=== PATIENT | female | born 1970 | race Caucasian/White ===

== ENCOUNTER 2016-12-08 17:29 | Inpatient (IN) ==
[2016-12-08] MEDS ORDERED: Vancomycin 1,000 MG in D5% in Water 250 ML IVPB ONE (18:04)
--- NOTE | 2016-12-08 18:07 | Emergency Department Note ---
Disposition Clinical Impression: Olecranon bursitis Qualifiers: Laterality: left Qualified Code(s): M70.22 - Olecranon bursitis, left elbow Cellulitis Qualifiers: Site of cellulitis: unspecified site Qualified Code(s): L03.90 - Cellulitis, unspecified Disposition: Admitted As Inpatient Condition: Good Referrals: NONE,PCP [Primary Care Provider] - Forms: ED Satisfaction Letter Extremity Problem HPI - General Chief complaint: ED Extremity Problem,Nontraumatic Stated complaint: Cellulitis left arm Time Seen by Provider: 12/08/16 17:40 Source: patient Limitations: no limitations Nursing Notes Reviewed: Yes Vital Signs Reviewed: Yes - History of Present Illness HPI Narrative: Patient here for evaluation of left arm erythema and swelling. She has a history of IV drug use but nothing recent. She states the symptoms of left elbow pain has been going on for approximately 2 months. Erythema started about 3 weeks ago. She has tried warm soaks as well as trying to pop which she is concerned about an abscess in her elbow. Patient has now had swelling and erythema in the surrounding area. She has had fever for 1 day as well as chills. Pain Scale: 8 - Related Data Allergies Allergy/AdvReac Type Severity Reaction Status Date / Time ibuprofen Allergy Anaphylaxis Verified 12/08/16 17:36 Review of Systems: CONSTITUTIONAL: Fever and chills; No weight loss, , weakness or fatigue. HEENT: Eyes: No visual changes. Ears, Nose, Throat: No hearing loss, difficulty talking or unable to swallow. SKIN: Erythema of elbow CARDIOVASCULAR: No chest pain, chest pressure or chest discomfort. No palpitations or edema. RESPIRATORY: No shortness of breath, cough or sputum. GASTROINTESTINAL: No anorexia, nausea, vomiting or diarrhea. No abdominal pain or blood. GENITOURINARY: No burning on urination or hematuria. NEUROLOGICAL: No headache, dizziness, syncope, paralysis, ataxia, numbness or tingling in the extremities. No change in bowel or bladder control. MUSCULOSKELETAL: No muscle pain, back pain, joint pain or stiffness. Past Medical History - Past Medical History Medical history: Reports: hepatitis Psychiatric history: Reports: anxiety, ADHD, bipolar, depression - Social History Smoking Status: Current every day smoker Alcohol use: Reports: none Drug use: Reports: marijuana Physical Exam General appearance: NAD, conversant Eyes: anicteric sclerae, moist conjunctivae; PERRL HENT: Atraumatic; oropharynx clear with moist mucous membranes and no mucosal ulcerations Neck: Normal inspection; Trachea midline; FROM, supple Lungs: CTA, with normal respiratory effort and no intercostal retractions CV: RRR, no MRGs Abdomen: Soft, non-tender; no rebound or gaurding Extremities: Erythema and swelling to the left elbow. Area marked with nipple marker. Approximately 5 x 7 cm in nature. Skin: Normal temperature; no rash, ulcers or lesions Psych: Appropriate mood and affect Neuro: alert and oriented to person, place and time - General Limitations: no limitations General appearance: alert, in no apparent distress Course - Reevaluation(s) Reevaluation #1: Elevated white count, olecranon bursitis, cellulitis. - Consultations Consultation #1: Discussed with Dr. Fried. Pt accepted. Vital Signs Temperature 99.0 F 12/08/16 17:31 Pulse Rate 87 12/08/16 17:31 Respiratory Rate 16 12/08/16 17:31 Blood Pressure 138/56 12/08/16 17:31 O2 Sat by Pulse Oximetry 96 12/08/16 17:31 Temperature 99.0 F 12/08/16 17:31 Pulse Rate 87 12/08/16 17:31 Respiratory Rate 16 12/08/16 17:31 Blood Pressure 138/56 12/08/16 17:31 O2 Sat by Pulse Oximetry 96 12/08/16 17:31 Oxygen Delivery Oxygen Delivery Room Air Extremity Problem, Nontraumati - Medical Records Medical records reviewed: Yes I reviewed the patient's medical records. - Lab Data Lab results reviewed: Yes I reviewed the patient's lab results. Result diagrams: 12/08/16 18:31 12/08/16 18:31 Lab Results 12/08/16 12/08/16 Range/Units 18:31 18:31 WBC 14.2 H (4.3-11.1) K/mcL RBC 4.42 (3.82-4.97) M/mcL Hgb 13.3 (11.5-15.4) g/dL Hct 40.9 (35.3-44.9) % MCV 92.5 (83.0-100.0) fL MCH 30.1 (28.0-33.3) pg MCHC 32.5 (31.6-35.5) g/dL RDW 13.9 (11.5-14.5) % Plt Count 165 (140-400) K/mcL MPV 11.8 (9.4-12.4) fL Immature Gran % 0.4 (0-4) % Seg Neutrophils % 84.9 % Lymphocytes % 8.2 % Monocytes % 6.2 % Eosinophils % 0.1 % Basophils % 0.2 % Neutrophils # 12.1 H (1.6-8.9) K/mcL Lymphocytes # 1.2 (0.6-4.6) K/mcL Monocytes # 0.9 (0.0-1.3) K/mcL Eosinophils # 0.0 (0.0-0.6) K/mcL Basophils # 0.0 (0.0-0.2) K/mcL Sodium 132 L (136-145) mEq/L Potassium 3.8 (3.5-4.5) mEq/L Chloride 100 (98-109) mEq/L Carbon Dioxide 19 (19-29) mEq/L BUN 13 (7-20) mg/dL Creatinine 0.70 (0.57-1.11) mg/dL Est GFR ( Amer) > 60 (> 60) Est GFR (Non-Af Amer) > 60 (> 60) BUN/Creatinine Ratio 19 (6-26) Glucose 102 H (70-99) mg/dL Calculated Osmolality 274 L (280-300) Calcium 9.9 (8.6-10.8) mg/dL Total Bilirubin 0.3 (0.2-1.2) mg/dL Direct Bilirubin 0.2 (0.0-0.5) mg/dL Indirect Bilirubin 0.1 (0.0-1.2) mg/dL AST 22 (5-34) Units/L ALT 22 (0-55) Units/L Alkaline Phosphatase 125 (38-126) Units/L Serum Total Protein 7.6 (6.0-8.3) g/dL Albumin 3.2 L (3.5-5.0) g/dL Globulin 4.4 H (2.4-3.5) g/dL Albumin/Globulin Ratio 0.7 L (1.1-2.2) - Radiology Data Radiology results reviewed: Yes I reviewed the patient's radiology results. - EKG Data EKG attestation: Yes I reviewed and interpreted this EKG. EKG results narrative: EKG shows sinus tachycardia with ventricular rate of 118. VT interval 128. QRS 85. QTC 410. No significant ST elevations or depressions. No previous EKG at this time for comparison.
--- NOTE | 2016-12-08 18:18 | Emergency Department Note ---
START Narrative - START START: I examined this patient and my medical decision-making was reviewed with the Resident Physician. I agree with the documented findings, disposition and treatment plan as described except to the extent set forth below. Patient was independently seen and evaluated by myself. Patient was seen with the emergency medicine resident Kurt Elizabeth. Please see copy of her notes for details of this ED encounter management and disposition. Briefly: A 46-year-old female former IVDA presents with about a week of increasing redness and discomfort around her left elbow. Denies any recent IV drug use for years denies stabbing or needling the area she has almost circumferential cellulitis involving the olecranon bursa. She is neurovascularly intact. There is some soft tissue fullness unclear if this fluctuance. Patient had blood work and the CT with contrast to check for delineation of the depth and the tissue planes of the infection. Admission anticipated with IV antibiotics. Provided 30 minutes of critical care service for this patient. Disposition pending
[2016-12-08 18:50] LABS: Basophils % 0.2 %; Eosinophils % 0.1 %; Hematocrit 40.9 % (35.3-44.9); Hemoglobin 13.3 g/dL (11.5-15.4); Immature Granulocytes % 0.4 % (0-4); Lymphocytes # 1.2 K/mcL (0.6-4.6); Lymphocytes % 8.2 %; Mean Corpuscular HGB Conc 32.5 g/dL (31.6-35.5); Mean Corpuscular Hemoglobin 30.1 pg (28.0-33.3); Mean Corpuscular Volume 92.5 fL (83.0-100.0); Mean Platelet Volume 11.8 fL (9.4-12.4); Monocytes # 0.9 K/mcL (0.0-1.3); Monocytes % 6.2 %; Neutrophils # 12.1 K/mcL (1.6-8.9); Platelet Count 165 K/mcL (140-400); Red Blood Count 4.42 M/mcL (3.82-4.97); Red Cell Distribution Width 13.9 % (11.5-14.5); Segmented Neutrophils % 84.9 %
[2016-12-08 19:03] LABS: Alanine Aminotransferase 22 Units/L (0-55); Albumin 3.2 g/dL (3.5-5.0); Albumin/Globulin Ratio 0.7 (1.1-2.2); Alkaline Phosphatase 125 Units/L (38-126); Aspartate Amino Transferase 22 Units/L (5-34); BUN/Creatinine Ratio 19 (6-26); Bilirubin,Direct 0.2 mg/dL (0.0-0.5); Bilirubin,Indirect 0.1 mg/dL (0.0-1.2); Bilirubin,Total 0.3 mg/dL (0.2-1.2); Blood Urea Nitrogen 13 mg/dL (7-20); Calcium 9.9 mg/dL (8.6-10.8); Carbon Dioxide 19 mEq/L (19-29); Chloride 100 mEq/L (98-109); Globulin 4.4 g/dL (2.4-3.5); Glucose 102 mg/dL (70-99); Osmolality,Calculated 274 (280-300); Potassium 3.8 mEq/L (3.5-4.5); Sodium 132 mEq/L (136-145); Total Protein 7.6 g/dL (6.0-8.3); eGFR For African Americans > 60 (> 60); eGFR For Non-African Americans > 60 (> 60)
[2016-12-08 23:04] LABS: Bilirubin,Urine Negative (Negative); Blood,Urine Negative (Negative); Clarity,Urine Clear (Clear); Color,Urine Yellow (Yellow); Glucose,Urine (UA) Normal (Normal); Ketones,Urine Negative (Negative); Leukocyte Esterase,Urine Negative (Negative); Nitrite,Urine Negative (Negative); PH,Urine 6.5 pH Units (5.0-8.0); Protein,Urine Negative (Neg-Trace); Specific Gravity,Urine > 1.030 (1.010-1.025); Urobilinogen,Urine Normal (Normal)
[2016-12-08 23:10] LABS: Amphetamine Screen,Urine Positive ng/mL (Cutoff=1000); Barbiturate Screen,Urine Negative ng/mL (Cutoff=200); Benzodiazepines Screen,Urine Negative ng/mL (Cutoff=200); Cannabinoid Screen,Urine Positive ng/mL (Cutoff = 50); Cocaine Screen,Urine Negative ng/mL (Cutoff= 300); Opiate Screen,Urine Positive ng/mL (Cutoff=300); Phencyclidine Screen,Urine Negative ng/mL (Cutoff=25)
--- NOTE | 2016-12-09 00:48 | Internal Med History&Physical ---
Date of Encounter: 12/09/16 Time of Encounter: 00:45 Assessment and Plan (1) IV drug user Current visit: Yes Status: Acute I will avoid IV opiates for pain control due to high potential for addiction, abuse and dependence. (2) Polysubstance abuse Current visit: Yes Status: Acute Urine drug screen is positive for marijuana, opiates and methamphetamine. Plan: We will consult social work. I have instructed the patient does not share needles. (3) Tobacco abuse Current visit: Yes Status: Acute I have advised smoking cessation and offered nicotine replacement therapy. (4) Olecranon bursitis Current visit: Yes Status: Acute Broad spectrum IV antibiotics and consult to orthopedic surgery. Pain control with IV acetaminophen. In spite of reported history of hepatitis B, her LFTs are normal so a dose of up to 4 g of IV acetaminophen for a short course should be safe. Qualifiers: Laterality: left Qualified Code(s): M70.22 - Olecranon bursitis, left elbow (5) Left arm cellulitis Current visit: Yes Status: Acute IV Zosyn and vancomycin. Follow-up blood cultures obtained in the emergency department. Source controlled by orthopedics. Intraoperative culture and if the patient requires I&D. Nothing by mouth after midnight. Pain control with IV acetaminophen. (6) Sepsis due to cellulitis Current visit: Yes Status: Acute Diagnosis established based on elevated white blood cell count of 14,000 and tachycardia with heart rate of 100. Plan: Blood cultures are pending. Start broad-spectrum IV antibiotics with Zosyn and vancomycin. Check lactic acid level. No evidence of end organ dysfunction at this time. We will monitor closely. She is at high risk for morbidity, mortality and complications due to sepsis requiring IV vancomycin which needs blood level monitoring for toxicity. Internal Medicine - H&P: HPI Chief complaint: Left arm swelling and pain Admitted From: Emergency Dept Plans for Post Hospital Care: Home History of present illness: Ms. Summers is a 46 year old female with past medical history for significant for IV drug use and hepatitis B who presented to the hospital for evaluation of left arm pain. She noticed a small lesion on her elbow month and a half ago she tried to squeeze the contents which appeared to be fluid and thought it was improving. Soon it started swelling and over the last 3 days swelling involved the left elbow forearm and extending into the left arm, was associated with severe dull and aching 8/10 in intensity pain in the left elbow, worse with movement. She tried hot water and did not improve her pain. She reports associated subjective fevers. A 10 point review of systems was negative Family history was reviewed and found to be noncontributory to the current presentation Social history: She lives at home with her boyfriend, she has a history of IV drug use mostly heroin which last use was started 3 months ago, she admits to snorting heroin 3 weeks ago, denies alcohol use, smokes 10 cigarettes a day Past Med Surg Social Fam HX - Past Medical History Medical history: hepatitis, other Psychiatric history: anxiety, ADHD, bipolar, depression - Social History Smoking Status: Current every day smoker Packs per day: 0.5 Smokeless Tobacco Status: No Alcohol use: none Drug use: cocaine, marijuana, other - Family History Sister History Unknown: Yes Internal Medicine - H&P: Meds 3 Allergy/AdvReac Type Severity Reaction Status Date / Time ibuprofen Allergy Anaphylaxis Verified 12/08/16 17:36 All Systems PM: A 10-system review of systems was performed and is negative for pertinent findings except as documented above in the HPI. - Constitutional Vitals: Temp Pulse Resp BP Pulse Ox 98.4 F 100 15 106/65 97 12/08/16 22:42 12/08/16 22:42 12/08/16 22:42 12/08/16 22:42 12/08/16 22:42 General appearance: Present: A&O X 3 - Eye Eye exam: Present: PERRL, conjuntiva pink, sclera anicteric Pupils: Present: PERRL - Respiratory Respiratory exam: Present: CTAB. Absent: accessory muscle use, rales, rhonchi, wheezes - Cardiovascular Cardiovascular exam: Present: RRR, +S1, +S2. Absent: diastolic murmur, gallop, rubs, systolic murmur - GI/Abdominal GI/Abdominal exam: Present: normal bowel sounds, soft, no peritoneal signs. Absent: distended, tenderness - Extremities Exam Extremities exam: Present: warm, radial pulses palpable and symmetrical. Absent : calf tenderness, cyanotic, pedal edema Additional comments: Left upper extremity swelling and pain and tenderness to palpation and passive mobilization. - Neurological Exam Neurological exam: Present: CN II-XII intact, oriented X3, no focal deficits. Absent: pronater drift, facial droop, speech deficit - Skin Additional comments: Left elbow, forearm and proximal left arm soft tissue swelling, redness and tenderness to palpation, no fluctuant area is noted. No open wounds, no track weir. There are some small scabbed wounds on the dorsum of the left hand which could have been previous self injection sites. No other obvious skin lesions noted. Internal Med - H&P Results - Labs CBC & Chem 7: 12/08/16 18:31 12/08/16 18:31 Labs: Urine 12/08/16 Range/Units 22:53 Urine Color Yellow (Yellow) Urine Clarity Clear (Clear) Urine pH 6.5 (5.0-8.0) pH Units Ur Specific [place] > 1.030 H (1.010-1.025) Urine Protein Negative (Neg-Trace) mg/dL Urine Glucose (UA) Normal (Normal) mg/dL
[2016-12-09] MEDS ORDERED: Acetaminophen 325 MG TABLET PO PRN (01:20)
[2016-12-09] MEDS ORDERED: Ondansetron 4 MG/2 ML VIAL IVP PRN (01:20)
[2016-12-09] MEDS ORDERED: Acetaminophen IV 1,000 MG/100 ML INFUS..BTL IVPB ONE (01:22)
[2016-12-09 01:35] LABS: Hematocrit 39.2 % (35.3-44.9); Hemoglobin 13.1 g/dL (11.5-15.4); Immature Platelets 6.4 % (1.1-6.1); Mean Corpuscular HGB Conc 33.4 g/dL (31.6-35.5); Mean Corpuscular Hemoglobin 30.3 pg (28.0-33.3); Mean Corpuscular Volume 90.5 fL (83.0-100.0); Mean Platelet Volume 10.3 fL (9.4-12.4); Platelet Count 198 K/mcL (140-400); Red Blood Count 4.33 M/mcL (3.82-4.97); Red Cell Distribution Width 13.8 % (11.5-14.5)
[2016-12-09 01:38] LABS: INR 1.3; Prothrombin Time 13.9 Seconds (9.4-12.1)
[2016-12-09 01:46] LABS: BUN/Creatinine Ratio 17 (6-26); Blood Urea Nitrogen 12 mg/dL (7-20); Calcium 8.9 mg/dL (8.6-10.8); Carbon Dioxide 23 mEq/L (19-29); Chloride 99 mEq/L (98-109); Glucose 112 mg/dL (70-99); Osmolality,Calculated 275 (280-300); Potassium 3.4 mEq/L (3.5-4.5); Sodium 132 mEq/L (136-145); eGFR For African Americans > 60 (> 60); eGFR For Non-African Americans > 60 (> 60)
[2016-12-09 01:52] LABS: Large Platelets Present (Not Present); Lymphocytes # 2.6 K/mcL (0.6-4.6); Monocytes # 0.3 K/mcL (0.0-1.3); Neutrophils # 13.4 K/mcL (1.6-8.9); Platelet Estimate Normal (Normal); Reactive Lymphocytes Present (Not Present)
[2016-12-09] MEDS: 0.9 % Sodium Chloride 1,000 ML IVC SCH ×4 (01:53→18:10)
[2016-12-09] MEDS ORDERED: Vancomycin (wt based) 1,000 MG VIAL IVPB SCH (02:00)
[2016-12-09] MEDS: Acetaminophen IV 1,000 MG/100 ML INFUS..BTL IVPB SCH ×3 (02:14→16:48)
[2016-12-09] MEDS: *HR* Heparin 5,000 UNIT/ML VIAL SQ SCH ×2 (06:17→16:49)
[2016-12-09] MEDS: Vancomycin 750 MG in D5% in Water 250 ML IVPB SCH ×2 (06:18→16:50)
[2016-12-09] MEDS: Piperacillin/Tazobactam 3.375 GM in D5% in Water (Mini-Bag+) 100 ML IVPB SCH ×3 (07:52→23:31)
--- NOTE | 2016-12-09 10:25 | Event Note ---
Date of Encounter: 12/09/16 Time of Encounter: 10:21 Pt is a 46y/o female admitted for left arm cellulitis and olecranon bursitis. Pt seen and examined at bedside. Pain appropriately controlled and requesting diet. She is started on empiric IV abx. Orthopedic surgery (Dr. Conn) has been consulted for the I&D of the olecranon bursitis. Patient has history of IVDA and polysubstance abuse. Pain control with tylenol.
[2016-12-09] MEDS ORDERED: Lidocaine 1% 20 ML MDV ID ONE (14:47)
--- NOTE | 2016-12-09 15:42 | Orthopedic Consult Note ---
Date of Encounter: 12/09/16 Time of Encounter: 15:37 History of Present Illness Chief complaint: Left elbow pain and swelling HPI: Ms. Summers is a 46 year old right hand dominant female states she has had a painful and swollen left elbow for several months time. She states that she struck it on a kitchen table several months ago. She has intermittently expressed pus from the elbow. She states however that has gotten significantly more painful and swollen just recently. Denies any recent trauma. She presented to the emergency room where examination was consistent with a cellulitis and probable septic bursitis of the left olecranon. She does have a history of intravenous drug abuse. For complete history and physical data please refer the completed portion of the medical record. Pertinent orthopedic examination at this time reveals marked amount of erythema and edema about the left elbow and extending distally to the hand. There is fluctuance within the olecranon bursa. Neurosensory exam is grossly intact. CT scan reveals presence of fluid in the olecranon bursa. What blood cell count is 16.3 with a elevated neutrophil count. Procedure: After informed consent was obtained the left olecranon bursa had incision and drainage performed. Skin was prepped with alcohol followed by the instillation of 10 mL of 1% lidocaine solution. Betadine was applied. A formal incision and drainage was then performed with a cruciate incision created with a #15 scalpel blade. Thick purulent material was expressed. Cultures were obtained. The wound was evacuated of as much of this tear as possible. Wounds then packed with iodoform packing and dressed with 4 x 4's and Kerlix. Impression: Septic left olecranon bursitis Recommendation: Formal incision and drainage has been performed. This should allow the antibiotics to have a greater impact on the infectious process. We will ice and elevate the elbow. I have encouraged patient to move her elbow hand and wrist as much as possible. We will reevaluate her in 24 hours with probable packing removal at that time. Thank you very much for allowing me to see and care for Mrs. Summers. Sincerely, Daljit Conn,DO Past Med Surg Social Fam HX - Past Medical History Medical history: hepatitis, other Psychiatric history: anxiety, ADHD, bipolar, depression - Social History Smoking Status: Current every day smoker Packs per day: 0.5 Smokeless Tobacco Status: No Alcohol use: none Drug use: cocaine, marijuana, other - Family History Sister History Unknown: Yes Medications and Allergies 3 Allergy/AdvReac Type Severity Reaction Status Date / Time ibuprofen Allergy Anaphylaxis Verified 12/08/16 17:36 All Systems Reviewed: A 10-system review of systems was performed and is negative for pertinent findings except as documented above in the HPI. Physical Exam - Constitutional Vitals: Temp Pulse Resp BP Pulse Ox 99.8 F H 98 16 113/59 99 12/09/16 14:20 12/09/16 14:20 12/09/16 14:20 12/09/16 14:20 12/09/16 14:20 Results - Labs Result Diagrams: 12/09/16 01:28 12/09/16 01:28 Labs: Abnormal lab results WBC 16.3 K/mcL (4.3-11.1) H 12/09/16 01:28 Band Neutrophils % 16.0 % (0-4) H 12/09/16 01:28 Neutrophils # 13.4 K/mcL (1.6-8.9) H 12/09/16 01:28 Reactive Lymphocytes Present (Not Present) A 12/09/16 01:28 Large Platelets Present (Not Present) A 12/09/16 01:28 Immature Plt Fraction 6.4 % (1.1-6.1) H 12/09/16 01:28 PT 13.9 Seconds (9.4-12.1) H 12/09/16 01:28 Sodium 132 mEq/L (136-145) L 12/09/16 01:28 Potassium 3.4 mEq/L (3.5-4.5) L 12/09/16 01:28 Glucose 112 mg/dL (70-99) H 12/09/16 01:28 POC Glucose 95 (58-89) H 12/09/16 06:08 Calculated Osmolality 275 (280-300) L 12/09/16 01:28 Albumin 3.2 g/dL (3.5-5.0) L 12/08/16 18:31 Globulin 4.4 g/dL (2.4-3.5) H 12/08/16 18:31 Albumin/Globulin Ratio 0.7 (1.1-2.2) L 12/08/16 18:31 Ur Specific [place] > 1.030 (1.010-1.025) H 12/08/16 22:53 Urine Opiates Screen Positive ng/mL (Azfkjl=412) H 12/08/16 22:53 Ur Amphetamines Screen Positive ng/mL (Gxxepc=0290) H 12/08/16 22:53 U Marijuana (THC) Screen Positive ng/mL (Cutoff = 50) H 12/08/16 22:53 H & H 12/09/16 Range/Units 01:28 Hgb 13.1 (11.5-15.4) g/dL Hct 39.2 (35.3-44.9) % All other labs normal. Consult Discharge Plan - Plan Referrals: NONE,PCP [Primary Care Provider] -
[2016-12-09] MEDS: Pantoprazole 40 MG VIAL IVP SCH (16:52)
--- NOTE | 2016-12-09 18:08 | Electrocardiograph Report ---
[place] [id number] Test Date: 2016-12-08 Pat Name: Roxanna Summers Department: 0 Room: 3A24 Gender: F Hand Slitter: Nick : 1970 Requested By: Kurt Elizabeth Order Number: [id number] Reading MD: Ken Peña MD Measurements Intervals [place] Rate: 118 P: 73 VT: 128 QRS: 75 QRSD: 85 T: 56 QT: 340 QTc: 410 Interpretive Statements SINUS TACHYCARDIA Electronically Signed On 12-09-2016 18:06:49 EDT by Ken Peña MD
[2016-12-09] MEDS: *HR* LORazepam 1 MG TABLET PO PRN (20:42)
[2016-12-09] MEDS ORDERED: Acetaminophen IV 1,000 MG/100 ML INFUS..BTL IVPB SCH (21:30)
[2016-12-10] MEDS: 0.9 % Sodium Chloride 1,000 ML IVC SCH ×2 (03:46→14:20)
[2016-12-10] MEDS: Acetaminophen IV 1,000 MG/100 ML INFUS..BTL IVPB SCH (03:49)
[2016-12-10 05:09] LABS: Basophils % 0.1 %; Eosinophils # 0.1 K/mcL (0.0-0.6); Eosinophils % 0.4 %; Hematocrit 35.1 % (35.3-44.9); Immature Granulocytes % 1.1 % (0-4); Lymphocytes # 1.5 K/mcL (0.6-4.6); Lymphocytes % 10.5 %; Mean Corpuscular HGB Conc 31.6 g/dL (31.6-35.5); Mean Corpuscular Hemoglobin 29.5 pg (28.0-33.3); Mean Corpuscular Volume 93.4 fL (83.0-100.0); Monocytes % 7.4 %; Neutrophils # 11.4 K/mcL (1.6-8.9); Platelet Count 182 K/mcL (140-400); Red Blood Count 3.76 M/mcL (3.82-4.97); Red Cell Distribution Width 14.4 % (11.5-14.5); Segmented Neutrophils % 80.5 %
[2016-12-10 05:29] LABS: BUN/Creatinine Ratio 11 (6-26); Blood Urea Nitrogen 7 mg/dL (7-20); Calcium 8.4 mg/dL (8.6-10.8); Carbon Dioxide 20 mEq/L (19-29); Chloride 110 mEq/L (98-109); Glucose 103 mg/dL (70-99); Magnesium 1.6 mg/dL (1.6-2.6); Osmolality,Calculated 284 (280-300); Phosphorous 2.5 mg/dL (2.3-4.7); Potassium 3.6 mEq/L (3.5-4.5); Sodium 138 mEq/L (136-145); eGFR For African Americans > 60 (> 60); eGFR For Non-African Americans > 60 (> 60)
[2016-12-10 05:33] LABS: Hemoglobin 11.1 g/dL (11.5-15.4)
[2016-12-10] MEDS: *HR* Heparin 5,000 UNIT/ML VIAL SQ SCH ×2 (05:50→18:56)
[2016-12-10] MEDS: Vancomycin 750 MG in D5% in Water 250 ML IVPB SCH (05:51)
[2016-12-10 06:03] LABS: Platelet Estimate Normal (Normal)
[2016-12-10] MEDS: Pantoprazole 40 MG VIAL IVP SCH (09:40)
[2016-12-10] MEDS: Piperacillin/Tazobactam 3.375 GM in D5% in Water (Mini-Bag+) 100 ML IVPB SCH ×3 (09:40→23:54)
--- NOTE | 2016-12-10 11:18 | Internal Med Progress Note ---
Date of Encounter: 12/10/16 Time of Encounter: 11:15 - Assessment and plan (1) Sepsis due to cellulitis Current Visit: Yes Status: Acute Assessment and plan: Improving secondary to Left arm cellulitis and septic olecranon bursitis continue IV abx s/p I&D by ortho, appreciate orthopedic consultation IV acetaminophen prn pain f/u wound cultures (2) Left arm cellulitis Current Visit: Yes Status: Acute Assessment and plan: as listed above (3) Olecranon bursitis Current Visit: Yes Status: Acute Assessment and plan: as listed above wound care as per ortho Qualifiers: Laterality: left Qualified Code(s): M70.22 - Olecranon bursitis, left elbow (4) IV drug user Current Visit: Yes Status: Chronic (5) Polysubstance abuse Current Visit: Yes Status: Chronic (6) Tobacco abuse Current Visit: Yes Status: Chronic - Subjective Interval history: Pt seen and examined at bedside. Reported by the nursing staff that there is a high suspicion for the patient abusing drugs while hospitalized. She was noted to be going to the bathroom with her purse clenched under her arms and does not like anyone being in her room at all times. Given her drug abuse history, will speak with the warehouse associate driver in regards to checking her belongings. IV acetaminophen prn pain given history No overnight issues were reported. - Constitutional Vitals: Temp Pulse Resp BP Pulse Ox 100.0 F H 88 14 114/62 96 12/10/16 11:00 12/10/16 11:00 12/10/16 11:00 12/10/16 11:00 12/10/16 11:00 General appearance: Present: A&O X 3, no acute distress, answers questions appropriately - Head Head exam: Present: atraumatic, normocephalic - Eye Eye exam: Present: conjuntiva pink, sclera anicteric - Respiratory Respiratory exam: Present: CTAB. Absent: accessory muscle use, rales, rhonchi, wheezes - Cardiovascular Cardiovascular exam: Present: RRR, +S1, +S2. Absent: diastolic murmur, gallop, rubs, systolic murmur - GI/Abdominal GI/Abdominal exam: Present: normal bowel sounds, soft, no peritoneal signs. Absent: distended, tenderness - Extremities Exam Extremities exam: Present: warm, radial pulses palpable and symmetrical. Absent : calf tenderness, cyanotic, pedal edema Additional comments: left elbow wrapped in dressing, LUE erythema - Neurological Exam Neurological exam: Present: alert, oriented X3 - Psychiatric Psychiatric exam: Present: normal affect, normal mood Internal Medicine: Result - Labs CBC & Chem 7: 12/10/16 04:39 12/10/16 04:39 Labs: Short CBC 12/10/16 Range/Units 04:39 WBC 14.1 H (4.3-11.1) K/mcL Hgb 11.1 L D (11.5-15.4) g/dL Hct 35.1 L (35.3-44.9) % Plt Count 182 (140-400) K/mcL Neutrophils # 11.4 H (1.6-8.9) K/mcL BMP 12/10/16 04:39 Sodium 138 Potassium 3.6 Chloride 110 H Carbon Dioxide 20 BUN 7 Creatinine 0.61 Glucose 103 H Calcium 8.4 L - ABG Interpretation ABG results: PT/INR, D-dimer PT 13.9 Seconds (9.4-12.1) H 12/09/16 01:28 Consult Discharge Plan - Plan Referrals: NONE,PCP [Primary Care Provider] -
[2016-12-10] MEDS ORDERED: Acetaminophen IV 1,000 MG/100 ML INFUS..BTL IVPB SCH (13:00)
[2016-12-10] MEDS: Vancomycin 1,250 MG in D5% in Water 250 ML IVPB SCH (18:15)
[2016-12-10] MEDS ORDERED: Acetaminophen 325 MG TABLET PO PRN (20:31)
--- NOTE | 2016-12-10 20:39 | Orthopedics Progress Note ---
Date of Encounter: 12/10/16 Time of Encounter: 20:36 Subjective Principal diagnosis: Septic left olecranon bursitis Interval history: Patient had I&D of a septic left olecranon bursa yesterday. She states she is feeling better today. Better hand and wrist function. Patient wants to go home. Vital signs are stable. She is currently afebrile. Arm is much improved with diminished edema and erythema. The wound is healthy appearing. There is some residual packing in the wound. White blood cell count is down. Culture shows staph aureus, presumptive MRSA Impression: Septic left olecranon bursitis, presumptive MRSA Recommendation: Continue with IV antibiotics for probably another 24 hours then could convert to oral antibiotics once the sensitivities are available. Can pull the packing tomorrow and just continue with a light dressing as long as there is drainage. Can follow-up with me as needed if the patient does not improve over the next 10 days to 2 weeks. Objective Vital signs: Vital Signs Temp Pulse Resp BP Pulse Ox 12/10/16 19:49 97.8 F 92 16 129/69 100 12/10/16 14:30 98.0 F 89 14 109/67 100 12/10/16 11:00 100.0 F H 88 14 114/62 96 12/10/16 06:50 98.8 F 82 18 114/62 97 12/10/16 04:12 99.3 F 89 18 111/70 97 Intake and Output 12/10/16 12/10/16 12/10/16 07:59 15:59 23:59 Intake Total 1350 / 1350 2040 / 2040 490 / 490 Output Total 900 / 900 600 / 600 600 / 600 Balance 450 / 450 1440 / 1440 -110 / -110 Intake: IV Fluids 1350 / 1350 1200 / 1200 250 / 250 0.9 % Sodium Chloride 1, 1000 / 1000 1000 / 1000 000 ML @ 100 mls/hr IVC . Q10H [facility]U Rx#:[id number] Ofirmev 1,000 mg/100 ml 1 100 / 100 ,000 mg In 100 ml @ 400 mls/hr IVPB Q6H MULU Rx#: [id number] Zosyn 3.375 GM In 100 / 100 100 / 100 Dextrose 5% (Minibag+) 100 ML 100 ML @ 25 mls/hr IVPB Q8HR MULU Rx#: [id number] Vancocin 1,250 MG In 250 / 250 Dextrose 5% 250 ML @ 166. 67 mls/hr IVPB Q12H MULU Rx#:[id number] Vancocin 750 MG In 250 / 250 Dextrose 5% 250 ML @ 250 mls/hr IVPB Q12H MULU Rx#: [id number] Oral 0 / 0 840 / 840 240 / 240 Output: Urine 900 / 900 600 / 600 600 / 600 Other: Meal Breakfast Dinner Percent of Meal Consumed 75% 25% Weight 50 kg Patient Weight 12/10/16 23:59 Weight 50 kg - Labs CBC & BMP: 12/10/16 04:39 12/10/16 04:39 Labs: Abnormal lab results WBC 14.1 K/mcL (4.3-11.1) H 12/10/16 04:39 RBC 3.76 M/mcL (3.82-4.97) L 12/10/16 04:39 Hgb 11.1 g/dL (11.5-15.4) L D 12/10/16 04:39 Hct 35.1 % (35.3-44.9) L 12/10/16 04:39 Band Neutrophils % 16.0 % (0-4) H 12/09/16 01:28 Neutrophils # 11.4 K/mcL (1.6-8.9) H 12/10/16 04:39 Reactive Lymphocytes Present (Not Present) A 12/09/16 01:28 Large Platelets Present (Not Present) A 12/09/16 01:28 Immature Plt Fraction 6.4 % (1.1-6.1) H 12/09/16 01:28 PT 13.9 Seconds (9.4-12.1) H 12/09/16 01:28 Chloride 110 mEq/L (98-109) H 12/10/16 04:39 Glucose 103 mg/dL (70-99) H 12/10/16 04:39 POC Glucose 95 (58-89) H 12/09/16 06:08 Calcium 8.4 mg/dL (8.6-10.8) L 12/10/16 04:39 Albumin 3.2 g/dL (3.5-5.0) L 12/08/16 18:31 Globulin 4.4 g/dL (2.4-3.5) H 12/08/16 18:31 Albumin/Globulin Ratio 0.7 (1.1-2.2) L 12/08/16 18:31 Ur Specific [place] > 1.030 (1.010-1.025) H 12/08/16 22:53 Vancomycin Trough 6.2 mcg/mL (10-20) L 12/10/16 04:39 Urine Opiates Screen Positive ng/mL ([place]=045) H 12/08/16 22:53 Ur Amphetamines Screen Positive ng/mL ([place]=9529) H 12/08/16 22:53 U Marijuana (THC) Screen Positive ng/mL (Cutoff = 50) H 12/08/16 22:53 Consult Discharge Plan - Plan Referrals: NONE,PCP [Primary Care Provider] -
[2016-12-10] MEDS: *HR* LORazepam 1 MG TABLET PO PRN (21:20)
[2016-12-11] MEDS: 0.9 % Sodium Chloride 1,000 ML IVC SCH (04:19)
[2016-12-11] MEDS: Vancomycin 1,250 MG in D5% in Water 250 ML IVPB SCH (04:20)
[2016-12-11 05:04] LABS: Basophils % 0.3 %; Eosinophils # 0.1 K/mcL (0.0-0.6); Eosinophils % 0.6 %; Hematocrit 36.2 % (35.3-44.9); Hemoglobin 12.2 g/dL (11.5-15.4); Immature Granulocytes % 0.8 % (0-4); Lymphocytes # 2.1 K/mcL (0.6-4.6); Lymphocytes % 16.5 %; Mean Corpuscular HGB Conc 33.7 g/dL (31.6-35.5); Mean Corpuscular Hemoglobin 30.6 pg (28.0-33.3); Mean Corpuscular Volume 90.7 fL (83.0-100.0); Mean Platelet Volume 11.2 fL (9.4-12.4); Monocytes # 0.8 K/mcL (0.0-1.3); Monocytes % 6.1 %; Neutrophils # 9.7 K/mcL (1.6-8.9); Platelet Count 194 K/mcL (140-400); Red Blood Count 3.99 M/mcL (3.82-4.97); Red Cell Distribution Width 14.2 % (11.5-14.5); Segmented Neutrophils % 75.7 %
[2016-12-11 05:13] LABS: BUN/Creatinine Ratio 11 (6-26); Blood Urea Nitrogen 7 mg/dL (7-20); Carbon Dioxide 20 mEq/L (19-29); Chloride 110 mEq/L (98-109); Potassium 3.7 mEq/L (3.5-4.5); Sodium 140 mEq/L (136-145); eGFR For African Americans > 60 (> 60)
[2016-12-11 05:14] LABS: Calcium 8.5 mg/dL (8.6-10.8); Glucose 82 mg/dL (70-99); Magnesium 1.5 mg/dL (1.6-2.6); Osmolality,Calculated 287 (280-300); Phosphorous 2.9 mg/dL (2.3-4.7); eGFR For Non-African Americans > 60 (> 60)
[2016-12-11] MEDS: *HR* Heparin 5,000 UNIT/ML VIAL SQ SCH (05:51)
[2016-12-11] MEDS: Piperacillin/Tazobactam 3.375 GM in D5% in Water (Mini-Bag+) 100 ML IVPB SCH (09:45)
[2016-12-11 11:29] VITALS: BP 158/85
--- NOTE | 2016-12-11 11:48 | Discharge Summary ---
Date of Encounter: 12/11/16 Time of Encounter: 09:45 - Discharge Diagnosis (1) Sepsis due to cellulitis Priority: Primary Status: Acute (2) Left arm cellulitis Priority: Secondary Status: Acute (3) Olecranon bursitis Priority: Secondary Status: Acute Qualifiers: Laterality: left Qualified Code(s): M70.22 - Olecranon bursitis, left elbow (4) IV drug user Priority: Secondary Status: Chronic (5) Polysubstance abuse Priority: Secondary Status: Chronic (6) Tobacco abuse Priority: Secondary Status: Chronic - Discharge Medications Prescriptions: Sulfamethoxazole/Trimeth DS [Bactrim DS] 1 each PO BID #22 tablet Home Medications: Sulfamethoxazole/Trimeth DS [Bactrim DS] 1 each PO BID #22 tablet 12/11/16 [Rx] Allergies/Adverse Reactions: 3 Allergy/AdvReac Type Severity Reaction Status Date / Time ibuprofen Allergy Anaphylaxis Verified 12/08/16 17:36 Date of admission: 12/09/16 01:04 Primary care physician: PCP NONE Consults: 12/09/16 01:04 Consult to Physician [CONS] Routine Consulting Provider: Daljit Conn Reason for Consult: Olecranon bursitis Call Completed: Yes Consult to Adult Remedial Education Instructor [CONS] Routine Reason for SW Consult: Polysubstance abuse Discharging clinician: Dorothy Bran Anticipated date of discharge: 12/11/16 - Patient Status Disposition: Home, Self-Care Condition: Good Functional capacity at discharge: independent ambulation Overall status at discharge: patient is progressing back to baseline - Discharge Instructions Follow Up With: Daljit Conn DO [Non-Partnered Physician] - 12/26/16 11:00 am (in 1-2 weeks) Rick Wilks DO [Resident] - 01/04/17 2:00 pm Sukumar Torres MD [Partnered Physician] - (in 3-4 weeks for management of chronic hepatitis B per history Web Request sent and they office will call with date and time of appt. Thank you) - Diet and Activity Activity: increase activity as tolerated Diet: low fat, low cholesterol, low salt diet Hospital course: Ms. Summers is a 46 year old female intravenous drug abuse who presented to the ER with complaints of left upper extremity swelling and redness. She was diagnosed with sepsis due to left arm cellulitis and olecranon bursitis. She was started on treatment with intravenous antibiotics. Orthopedics was consulted and patient underwent incision and drainage for her left olecranon bursitis. Wound cultures have been positive for methicillin-resistant staph aureus. Orthopedics has cleared the patient for discharge at this time on oral antibiotics and she can follow up with them as needed if her cellulitis does not improve. She has been counseled about the importance of taking her antibiotics as prescribed. Patient also reports a history of hepatitis B and requests referral to gastroenterology for evaluation and management. Her hepatic profile has been normal. - Time Spent with Patient Total time spent providing and/or coordinating discharge services: Less than 30 minutes (25 min) - Constitutional Vitals: Temp Pulse Resp BP Pulse Ox 98.1 F 89 15 158/85 100 12/11/16 11:28 12/11/16 11:28 12/11/16 11:28 12/11/16 11:28 12/11/16 11:28 General appearance: Present: A&O X 3, no acute distress, answers questions appropriately - Respiratory Respiratory exam: Present: CTAB. Absent: accessory muscle use, rales, rhonchi, wheezes - Cardiovascular Cardiovascular exam: Present: RRR, +S1, +S2. Absent: diastolic murmur, gallop, rubs, systolic murmur - Extremities Exam Extremities exam: Present: tenderness (left upper extremity over the elbow), warm, radial pulses palpable and symmetrical. Absent: calf tenderness, cyanotic , pedal edema Additional comments: decreased range of motion at left elbow. Cellulitis is much improved - Neurological Exam Neurological exam: Present: CN II-XII intact, oriented X3, no focal deficits. Absent: pronater drift, facial droop, speech deficit
[2016-12-11] MEDS ORDERED: Aminoglycoside Consult 1 EACH MC ONE (13:12)
== END 2016-12-11 13:13 | disposition home or self-care (01) | DRG 720 ==
LOC: 3ANU 17:29 → EMEROO 17:29 → 3ANU 23:02 → SUATTDRO 12-09 01:04
PROVIDERS: ADMIT Internal Medicine; ATTEND Internal Medicine